=== PATIENT | male | born 1960 | race Caucasian/White ===

== ENCOUNTER 2019-06-15 22:17 | Emergency (ER) | payer OTHER, SELFPAY ==
[2019-06-15 22:28] VITALS: BP 149/99; PULSE 75; RESP 16; TEMP 36.5; O2SAT 98; BMI 25.8
--- NOTE | 2019-06-15 22:30 | ED_ITS ---
HPI - Extremity Problem General: Chief complaint: Extremity Injury, Upper Stated complaint: Shoulder Pain Time Seen by Provider: 06/15/19 22:30 Source: patient Mode of arrival: ambulatory Limitations: no limitations History of Present Illness: HPI Narrative: Patient is a 58-year-old male who presents to ED today with complaints of chronic right shoulder pain and concern for a possible DVT; patient states he has had pain in his right shoulder for many many months now; he is scheduled to have an MRI in the next 2 weeks for further evaluation; patient states he has had radicular pain down his right arm previously but states a friend at work told him that he could have a blood clot so patient became scared and wanted evaluation MD Complaint: extremity pain Onset (ago): month(s) Pain Consistency: constant Location: right Quality: burning Radiation: distal Exacerbating factors: range of motion Associated symptoms: Reports no associated symptoms; Deny chest pain Review of Systems Card: Denies: chest pain, edema, lightheadedness, syncope or pre-syncope Resp: Denies: shortness of breath or pain on inspiration Musc: Reports: joint pain; Denies: extremity swelling Neuro: Denies: numbness in extremities, weakness in extremities or changes in sensation Physical Exam Const: COMMON NORMALS: no apparent distress, average body habitus, oriented x3, alert and well nourished Resp: COMMON NORMALS: normal respiratory effort and clear to auscultation bilaterally AUSCULTATION: clear to auscultation bilaterally Cardio: COMMON NORMALS: regular rate and regular rhythm RATE: regular rate RHYTHM: regular rhythm Extremity: OTHER: Patient has pain in right shoulder with abduction; he states his pain is within the joint itself ; there is no swelling, warmth/redness to the extremity; pulses intact Neuro: COMMON NORMALS: oriented x3 SENSORIUM/ORIENTATION: Yes alert Skin: COMMON NORMALS: no rashes or lesions noted GENERAL SKIN EXAM: no rashes or lesions noted Course Vital Signs: Vital signs: Vital Signs Temperature 97.7 F 06/15/19 22:28 Pulse Rate 75 06/15/19 22:28 Respiratory Rate 16 06/15/19 22:28 Blood Pressure 149/99 06/15/19 22:28 Pulse Oximetry 98 06/15/19 22:28 MDM - Extremity (Nontraumatic) MDM Narrative: Medical decision making narrative: There is absolutely no signs or symptoms of a DVT; I do not feel ultrasound is warranted as patient symptoms are chronic; recommend he continue current plan for upcoming MRI Discharge Plan Discharge Patient Disposition: Home, Self-Care Clinical Impression: Chronic right shoulder pain Condition: Stable Prescriptions: No Action alprazolam 1 mg tablet 1 mg PO DAILY RF: 0 hydrocodone-acetaminophen 10-325 mg tablet 10 - 325 tab PO QID RF: 0 Aspirin Low Dose 81 mg Tablet,Delayed Release (Dr/Ec) 81 mg PO DAILY RF: 0 Discharge Orders: Discharge Order (Routine); Ordered 06/15/19 Ordered By: Rosie Roger Referrals: Memo De MD [Primary Care Provider] - Radha Sr MD [Family Provider] - Discharge Diet: Usual diet Discharge Activity: Resume usual activity Activity Restrictions/Additional Instructions: Continue plan for upcoming MRI. 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
[2019-06-15] MEDS: dexamethasone 10 mg/mL INJ 8 MG IM (22:48)
== END 2019-06-15 22:53 | disposition home or self-care (01) ==
PROVIDERS: Emergency Provider Physician Assistant; Family Provider Family Medicine; PCP Specialist
DX: G89.29 Other chronic pain (principal); M25.511 Pain in right shoulder; Z79.82 Long term (current) use of aspirin
CPT/HCPCS: 96372; 99281; J1100

== ENCOUNTER 2019-11-07 07:49 | Outpatient (CLI) | payer OTHER, SELFPAY ==
--- NOTE | 2019-11-07 08:03 | MR_ITS ---
WS: [id number] MRI HEAD WITH CONTRAST WITH ATTENTION TO THE INTERNAL AUDITORY CANALS TECHNIQUE: Sagittal T1, T2 axial, T2 axial flair, axial susceptibility weighted imaging, axial diffus ion weighted images, and coronal T2 images were obtained. Pre and post T1 axial and post T1 coronal i mages. ADC and FSPGR images. Post gadolinium images with attention to the internal auditory canals. A xial fiesta imaging. CLINICAL INFORMATION: DIZZINESS, GIDDINESS, SENSORINEURAL HEARING LOSS, BILATERAL COMPARISON: None. FINDINGS: No evidence of restricted diffusion to suggest acute ischemia. Ventricular system and basal cisterns are patent. No suspicious intracranial signal abnormalities. Normal solorzano-white differentiation. Mild parenchymal volume loss. Normal posterior fossa. Normal vascular flow voids at the skull base. No ext ra-axial fluid collections. Paranasal sinuses and mastoid air cells are well aerated Nonenhancing arachnoid cyst at the right cerebellar medullary junction. Arachnoid cyst measures 1.7 x 1.4 x 2.1 CM. No significant mass effect. Proximal 7th and 8th cranial nerves are normal in appearan ce. Arachnoid cyst involves the right 9th through 11th cranial traversing nerves. Normal trigeminal n erve root entry zones. No evidence of enhancing IAC or CP angle mass. Normal optic chiasm and pituitary infundibulum. Normal visualized sella. Cavernous sinuses and Meckel 's cave appear normal. No abnormal intracranial enhancement. Normal visualized dural venous sinuses. Incidental intraparotid lymph nodes. MR/MR iac's wo/w con* [id number] IMPRESSION: 1. T2 hyperintense nonenhancing arachnoid cyst at the right cerebellar medulla ry junction. This is caudal to the IAC and does not affect the 7th and 8th cran ial nerves. 2. No evidence of enhancing IAC or CP angle mass. Normal trigeminal nerve root entry zones. 3. Mastoid air cells well aerated. Paranasal sinuses are well aerated. 4. No suspicious intracranial signal abnormalities. Mild parenchymal volume lo ss. 5. No abnormal intracranial enhancement. 6. No hemosiderin on the susceptibly weighted images.
[2019-11-07 08:33] LABS: Blood Urea Nitrogen 16 mg/dL (8-23); Glomerular Filtration Rate 56.3 mL/min (90-130)
== END 2019-11-07 07:50 | disposition home or self-care (01) ==
PROVIDERS: PCP Family Medicine; Visit Provider Specialist
DX: R42 Dizziness and giddiness (principal); H90.3 Sensorineural hearing loss, bilateral; G93.0 Cerebral cysts
CPT/HCPCS: 70553; 82565; 84520; A9579

== ENCOUNTER 2021-04-28 23:58 | Emergency (ER) | payer OTHER, SELFPAY ==
[2021-04-29 00:12] VITALS: BP 113/68; PULSE 50; RESP 16; TEMP 36.4; O2SAT 98; BMI 25.8
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
[2021-04-29] MEDS: naproxen 500 mg Tablet PO (01:22)
[2021-04-29 02:54] VITALS: BP 114/67; PULSE 84; RESP 16; O2SAT 97
== END 2021-04-29 03:28 | disposition home or self-care (01) ==
PROVIDERS: Emergency Provider Emergency Medicine; PCP Family Medicine
DX: S13.4XXA Sprain of ligaments of cervical spine, initial encounter (principal); Z79.82 Long term (current) use of aspirin; V89.2XXA Person injured in unspecified motor-vehicle accident, traffic, initial encounter
CPT/HCPCS: 72072; 72100; 99282

== ENCOUNTER 2021-05-25 15:25 | Emergency (ER) | payer OTHER, SELFPAY ==
--- NOTE | 2021-05-25 16:29 | XRR_ITS ---
PROCEDURE INFORMATION: Exam: XR Lumbosacral Spine Exam date and time: 05/25/2021 4:29 PM Age: 60 years old Clinical indication: Low back pain; Prior surgery; Surgery date: 6+ months; Surgery type: Lumbar; Additional info: Loewr back pain TECHNIQUE: Imaging protocol: XR of the lumbosacral spine. Views: 2 or 3 views. COMPARISON: CR (PELVIS, ) 04/29/2021 2:02 AM FINDINGS: Bones/joints: L4-L5 surgical hardware again seen in place. Mild productive degenerative endplate changes throughout the lumbar spine. T12 vertebral body chronic compression fracture without retropulsion of bony fragments. Soft tissues: Unremarkable. XR/XR lumbar spine 2-3V* [id number] IMPRESSION: 1. L4-L5 surgical hardware again seen in place. 2. Mild productive degenerative endplate changes throughout the lumbar spine. 3. T12 vertebral body chronic compression fracture without retropulsion of bony fragments.
--- NOTE | 2021-05-25 16:29 | XRR_ITS ---
PROCEDURE INFORMATION: Exam: XR Right Shoulder Exam date and time: 05/25/2021 4:29 PM Age: 60 years old Clinical indication: Pain; Right; Prior surgery; Surgery date: 6+ months; Surgery type: RT. Shoulder; Additional info: Shoulder pain TECHNIQUE: Imaging protocol: XR Right shoulder. Views: 2 or more views. COMPARISON: No relevant prior studies available. FINDINGS: Bones/joints: Normal. Lungs: Right lung field scattered calcified benign granulomas. Soft tissues: Normal. XR/XR shoulder RT min 2V* [id number] IMPRESSION: No acute findings.
[2021-05-25 17:00] VITALS: BP 126/79; PULSE 61; RESP 16; TEMP 36.5; O2SAT 100; BMI 25.6
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
--- NOTE | 2021-05-25 18:42 | PC.NURSE ---
reviewed discharge instructions with patient, patient is angry, states I am not paying for this visit anyway since they didnt do anything more than the last time, discharge instructions and prescriptions given to the patient and the patient was able to ambulate from the ED with out issue.
== END 2021-05-25 18:45 | disposition home or self-care (01) ==
PROVIDERS: Emergency Provider Physician Assistant; PCP Family Medicine
DX: M54.50 Low back pain, unspecified (principal); M25.511 Pain in right shoulder; Z79.82 Long term (current) use of aspirin
CPT/HCPCS: 72100; 72220; 73030; 99282

== ENCOUNTER → 2021-08-10 15:18 | Outpatient (BNVA) | payer OTHER, SELFPAY | PROVIDERS: PCP Family Medicine; Visit Provider Nurse Practitioner Family | DX: M54.12 Radiculopathy, cervical region (principal); R42 Dizziness and giddiness; M25.511 Pain in right shoulder; G89.29 Other chronic pain | CPT/HCPCS: 72040 ==

== ENCOUNTER 2021-09-23 08:14 | Outpatient (CLI) | payer OTHER, SELFPAY ==
--- NOTE | 2021-09-23 08:00 | MR_ITS ---
WS: [id number] MRI CERVICAL SPINE NONCONTRAST HISTORY: M54.12 - Radiculopathy, cervical region COMPARISON: 03/25/2010 Technique: Multiplanar, multisequence noncontrast imaging of the cervical spine. Since the prior examination patient has undergone intervertebral disc spacer at C5-6. There is distor tion of the soft tissues from the hardware encroaching upon the ventral cord. 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 This is partially visualized on the MRI measuring 2.1 x 1.7 cm. Craniocervical junction, C1 and C2 relationship, odontoid process and soft tissues are normal. C2-C3: Normal. C3-C4: Normal. C4-C5: Very mild annular disc bulging with small LEFT foraminal osteophytes. No significant stenosis or nerve root encroachment. C5-C6: Significant hardware at this level obscuring the disc space and foramina. C6-C7: Normal. C7-T1: Normal. Paraspinal soft tissue are normal. MR/MR cervical spin wo con* [id number] IMPRESSION: 1. Status post intervertebral disc spacer at C5-6 which is new since 2009. Gopal tral cervical cord at this level is obscured by metal artifact. 2. No significant central or foraminal stenosis or disc protrusions. 3. There is a very small LEFT foraminal osteophyte at C4-5. 4. 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
== END 2021-09-23 08:15 | disposition home or self-care (01) ==
PROVIDERS: PCP Family Medicine; Visit Provider Nurse Practitioner Family
DX: M54.12 Radiculopathy, cervical region (principal); R42 Dizziness and giddiness
CPT/HCPCS: 72141

== ENCOUNTER 2021-11-19 06:00 | Outpatient (RCR) | payer SELFPAY | END 2021-11-19 23:55 | disposition home or self-care (01) | LOC: MPT 06:00 | PROVIDERS: PCP Family Medicine; Referring Provider Anesthesiology Pain Medicine; Visit Provider Anesthesiology Pain Medicine | DX: M54.2 Cervicalgia (principal); H81.12 Benign paroxysmal vertigo, left ear | CPT/HCPCS: 95992; 97162 ==

== ENCOUNTER 2021-11-20 06:00 | Outpatient (RCR) | payer SELFPAY | END 2021-12-20 23:59 | disposition home or self-care (01) | LOC: MPT 06:00 | PROVIDERS: PCP Family Medicine; Referring Provider Anesthesiology Pain Medicine; Visit Provider Anesthesiology Pain Medicine | DX: M54.9 Dorsalgia, unspecified (principal) | CPT/HCPCS: 97110; 97140; G0283 ==

== ENCOUNTER 2021-12-31 15:44 | Outpatient (RCR) | payer SELFPAY | END 2022-01-20 23:59 | disposition home or self-care (01) | LOC: MPT 15:44 | PROVIDERS: PCP Family Medicine; Referring Provider Anesthesiology Pain Medicine; Visit Provider Anesthesiology Pain Medicine | DX: M54.9 Dorsalgia, unspecified (principal) | CPT/HCPCS: 97140; G0283 ==